=== PATIENT | male | born 1980 | race Caucasian/White ===

== ENCOUNTER 2016-10-29 19:21 | Emergency (ER) | payer OTHER ==
[2016-10-29 19:37] VITALS: TEMP 99.3
--- NOTE | 2016-10-29 19:52 | ED.PDOC ---
History of Present Illness - General Chief Complaint: Bite: Animal/Insect/Human Stated Complaint: insect bite, med refill Time Seen by Provider: 10/29/16 19:51 Source: patient Exam Limitations: no limitations - History of Present Illness Initial Comments: Eros Chacon 36 y/o male came to er with red /painful skin lesion right axilla came out 3 days ago and for refill of tylenol 4 for his lumbar radiculopathy. Timing/Duration: other - see hpi Severity: moderate Location: extremities - right axilla Improving Factors: nothing Worsening Factors: nothing Associated Symptoms: denies symptoms Allergies/Adverse Reactions: Allergies NO KNOWN ALLERGY Allergy (Verified 10/29/16 20:05) Home Medications: Ambulatory Orders Acetaminophen W/ Codeine [Acetaminophen/Codeine Bernadette] 1 tab PO Q6HR #14 tab 10/29 Clindamycin HCl 300 mg PO BID #14 cap 10/29/16 Gabapentin 10/29/16 Tylenol W/Codeine #4 10/29/16 Review of Systems - Review of Systems Constitutional: States: no symptoms reported EENTM: States: no symptoms reported Cardiology: States: no symptoms reported Musculoskeletal: States: back pain - lumbar pre existing Skin: States: see HPI Past Medical History (General) - Patient Medical History Hx Diabetes: No Hx MRSA: No Hx Other PMH: Yes - chronic low back pain - Vaccination History Immunizations Up to Date: No - Social History Hx Alcohol Use: Yes - Triage Comment ED Triage Comment: red area at rt axilla area, also here due to out of tylenol # 4 that he takes for chronic back pain. Family Medical History - Family History Father Family History: Unknown Physical Exam - Physical Exam General Appearance: Alert, No apparent distress Eyes, Ears, Nose, Throat Exam: PERRL/EOMI, normal ENT inspection Neck: full range of motion, supple Cardiovascular/Chest: regular rate, rhythm, no murmur Respiratory: lungs clear Gastrointestinal/Abdominal: non tender, soft Back Exam: no CVA tenderness Extremity: no pedal edema, no calf tenderness Neurologic: no motor/sensory deficits, alert Skin Problem Location: other - right axilla Skin Character: abscess Lymphatic: no adenopathy Progress - Progress Progress: 10/29/16 20:05 Vital Signs - 8 hr 10/29/16 19:33 Temperature 99.3 F Pulse Rate [ 126 H Right] Respiratory 18 Rate Blood Pressure 164/110 [Left Arm] O2 Sat by Pulse 97 Oximetry Procedures - Incision and Drainage #1 Site: right axilla Procedure and Prep: betadine prep, sterile drapes applied, sterile dressings applied, gauze wick placed, wound culture collected, pus drained - 3 cc Blade Size: 11 Departure - Departure Clinical Impression: Abscess of axillary region, Medication refill Time of Disposition: 20:53 Disposition: Discharge to Home or Self Care Condition: Good Departure Forms: ED Discharge - Pt. Copy, Patient Portal Self Enrollment Instructions: DI for Skin Abscess, DI for Incision and Drainage of a Skin Abscess Prescriptions: Acetaminophen W/ Codeine [Acetaminophen/Codeine Bernadette] 1 tab PO Q6HR #14 tab Clindamycin HCl 300 mg PO BID #14 cap Home Medications: Ambulatory Orders Acetaminophen W/ Codeine [Acetaminophen/Codeine Bernadette] 1 tab PO Q6HR #14 tab 10/29 Clindamycin HCl 300 mg PO BID #14 cap 10/29/16 Gabapentin 10/29/16 Tylenol W/Codeine #4 10/29/16 Additional Instructions: REMOVAL OF PACKING [facility] 10/30 2016 PM
[2016-10-29] MEDS: CLINDAMYCIN HCL CAP 150 MG CAP PO ONE (20:06)
[2016-10-29] MEDS: CLINDAMYCIN PHOSPHATE 150 MG/ML VIAL IM ONE (20:07)
[2016-10-29] MEDS ORDERED: LIDOCAINE 1% 10 ML VIAL INJ ONE (20:12)
[2016-10-29] MEDS: CLINDAMYCIN HCL CAP (ER DISP) 150 MG CAP PO ONE (20:59)
[2016-10-29] MEDS: HYDROCOD/APAP 10/325 (ER DISP) # 3 tablets PO ONE (20:59)
[2016-10-29 21:09] VITALS: BP 154/88; O2SAT 99
== END 2016-10-29 21:09 | disposition home or self-care (01) ==
LOC: ER 19:21
DX: L02.411 Cutaneous abscess of right axilla (principal); G89.29 Other chronic pain; M54.5 Low back pain; Z76.0 Encounter for issue of repeat prescription; Z79.899 Other long term (current) drug therapy
CPT/HCPCS: 87070; 87077; 87186; J3490

== ENCOUNTER 2016-10-30 19:05 | Emergency (ER) | payer OTHER ==
[2016-10-30] MEDS ORDERED: NEOMYCIN-BACITRACIN-POLYMYXIN 0.9 GM UD TOP ONE (19:22)
[2016-10-30 19:24] VITALS: BP 148/102; TEMP 97.9; O2SAT 97
--- NOTE | 2016-10-30 19:26 | ED.PDOC ---
History of Present Illness - General Chief Complaint: Skin/Abrasion/Tear Stated Complaint: came to have packing removed from abcess Time Seen by Provider: 10/30/16 19:10 Source: patient, RN notes reviewed, Vital Signs reviewed, old records Exam Limitations: no limitations - History of Present Illness Initial Comments: Patient was seen here yesterday and had an abscess packed. He was advised to return for packing removal. Other than pain patient has no complaints. Timing/Duration: yesterday Severity: moderate Location: torso - R lower axilla Improving Factors: medication - Clindamycin Worsening Factors: nothing Associated Symptoms: denies symptoms Allergies/Adverse Reactions: Allergies NO KNOWN ALLERGY Allergy (Verified 10/30/16 19:22) Home Medications: Ambulatory Orders Acetaminophen W/ Codeine [Acetaminophen/Codeine Bernadette] 1 tab PO Q6HR #14 tab 10/29 Clindamycin HCl 300 mg PO BID #14 cap 10/29/16 Gabapentin 10/29/16 Tylenol W/Codeine #4 10/29/16 Review of Systems - Review of Systems Constitutional: States: no symptoms reported Respiratory: States: no symptoms reported Cardiology: States: no symptoms reported Musculoskeletal: States: back pain - chronic Skin: States: see HPI Neurological: States: no symptoms reported All other Systems: No Change from Baseline Past Medical History (General) - Patient Medical History Hx Seizures: No Hx Stroke: No Hx Dementia: No Hx Asthma: No Hx of COPD: No Hx Cardiac Disorders: No Hx Congestive Heart Failure: No Hx Pacemaker: No Hx Hypertension: No Hx Thyroid Disease: No Hx Diabetes: No Hx Gastroesophageal Reflux: No Hx Renal Disease: No Hx Cancer: No Hx of HIV: No Hx Hepatitis C: No Hx MRSA: No Surgical History: no surgical history - Vaccination History Hx Tetanus, Diphtheria Vaccination: Yes Hx Influenza Vaccination: Yes - Social History Hx Tobacco Use: Yes Hx Chewing Tobacco Use: No Hx Alcohol Use: Yes Hx Substance Use: No Hx Substance Use Treatment: No Hx Depression: No Feels Threatened In Home Enviroment: No Feels Threatened In a Relationship: No Hx Physical Abuse: No Hx Emotional Abuse: No Hx Suspected Abuse: No Family Medical History - Family History Father Family History: Unknown Physical Exam - Physical Exam General Appearance: Alert, Comfortable, No apparent distress, Well Developed, Well Groomed, Well Hydrated, Well Nourished Respiratory: no respiratory distress Extremity: normal range of motion, normal inspection Neurologic: alert, normal mood/affect, oriented x 3 Skin Exam: warm/dry, normal color Skin Problem Location: torso - R lower axilla Skin Character: abscess - Dressing removed along with packing. Moderate purulent drainage on dressing. Moderate erythema, tenderness, no drainage once packing was removed. Minimal induration., swelling, tenderness, thickening, warm Lymphatic: no adenopathy Comments: Vital Signs 10/30/16 19:15 Temperature 97.9 F Pulse Rate [ 101 H monitor] Respiratory 18 Rate Blood Pressure 148/102 [Left Arm] O2 Sat by Pulse 97 Oximetry Progress - Progress Progress: 10/30/16 19:27 Area redressed with antibiotic ointment by nurse Departure - Departure Clinical Impression: Abscess of axillary region ICD-10 Supporting Text: Improving Time of Disposition: 19:28 Disposition: Discharge to Home or Self Care Departure Forms: ED Discharge - Pt. Copy, Patient Portal Self Enrollment Instructions: DI for Wound Infection Diet: resume usual diet Activity: increase activity as tolerated Home Medications: Ambulatory Orders Acetaminophen W/ Codeine [Acetaminophen/Codeine Bernadette] 1 tab PO Q6HR #14 tab 10/29 Clindamycin HCl 300 mg PO BID #14 cap 10/29/16 Gabapentin 10/29/16 Tylenol W/Codeine #4 10/29/16 Additional Instructions: Continue Clindamycin Hot compresses 3X/day Keep area clean, dry and dressed with antibiotic ointment.
[2016-10-30] MEDS: NEOMYCIN-BACITRACIN-POLYMYXIN 0.9 GM UD TOP ONE (19:27)
== END 2016-10-30 19:33 | disposition home or self-care (01) ==
LOC: ER 19:05
DX: Z48.00 Encounter for change or removal of nonsurgical wound dressing (principal)